=== PATIENT | female | born 1950 | race Caucasian/White ===

== ENCOUNTER → 2019-06-29 | Outpatient (CLI) | payer MEDICARE | END | disposition home or self-care (01) | LOC: RAD 15:45 | PROVIDERS: ATTEND Family Medicine | DX: N39.0 Urinary tract infection, site not specified (principal); R31.9 Hematuria, unspecified | CPT/HCPCS: 76770 ==

== ENCOUNTER 2019-11-23 09:57 | Outpatient (CLI) | payer MEDICARE ==
[2019-11-23] MEDS ORDERED: BIOT25005 PO (10:33)
[2019-11-23] MEDS ORDERED: FLUO20CA19 PO (10:33)
[2019-11-23] MEDS ORDERED: [UNRECOGNIZED DRUG - OTHER] PO (10:33)
[2019-11-23] MEDS ORDERED: MV-M1TAB29 PO (10:33)
[2019-11-23] MEDS ORDERED: UBID100C24 PO (10:33)
[2019-11-23] MEDS ORDERED: MULT-658 PO (10:33)
[2019-11-23] MEDS ORDERED: ATOR20TA37 PO (10:33)
[2019-11-23] MEDS ORDERED: MULT-672 PO (10:33)
[2019-11-23] MEDS ORDERED: OMEG-76 PO (10:33)
[2019-11-23] MEDS ORDERED: ASCO250T2 PO (10:33)
[2019-11-23] MEDS ORDERED: CALC-35 PO (10:33)
[2019-11-23] MEDS ORDERED: ENAL20TA PO (10:33)
[2019-11-23 11:17] LABS: BASOPHILS # (AUTO) 0.04 x10^3/uL (0-0.1); BASOPHILS % (AUTO) 1 % (0-1); EOSINOPHILS # (AUTO) 0.04 x10^3/uL (0-0.4); EOSINOPHILS % (AUTO) 1 % (1-7); LYMPHOCYTES # (AUTO) 2.19 x10^3/uL (1-3.4); LYMPHOCYTES % (AUTO) 29 % (22-44); MD NO; MEAN CORPUSCULAR HGB CONC 33.2 g/dL (32.4-35.8); MEAN CORPUSCULAR VOLUME 93.3 fL (80-100); MEAN PLATELET VOLUME 8.2 fL (7.4-10.4); MONOCYTES # (AUTO) 0.48 x10^3/uL (0.2-0.8); MONOCYTES % (AUTO) 6 % (2-9); NEUTROPHILS % (AUTO) 64 % (42-75); PLATELET COUNT 300 x10^3/uL (130-400); RED CELL DISTRIBUTION WIDTH 13.4 % (9.6-15.2)
[2019-11-23 11:20] LABS: MICROSCOPIC AUTO
[2019-11-23 11:24] LABS: INTERNATIONAL NORMALIZED RATIO 0.93 (0.93-1.1); PROTHROMBIN TIME 9.9 Seconds (9.6-11.5)
[2019-11-23 11:28] LABS: ALANINE AMINOTRANSFERASE 42 U/L (12-78); ALBUMIN 4.3 g/dL (3.4-5.0); ANION GAP 7 mmol/L (5-15); CALCIUM 9.9 mg/dL (8.5-10.1); CHLORIDE 112 mmol/L (98-107); CREATININE 0.94 mg/dL (0.55-1.02)
[2019-11-23 11:29] LABS: ALKALINE PHOSPHATASE 87 U/L (45-117); BILIRUBIN,TOTAL 0.4 mg/dL (0.2-1.0); TOTAL PROTEIN 8.3 g/dL (6.4-8.2)
== END 2019-11-23 23:59 | disposition home or self-care (01) ==
LOC: STAR 09:57
PROVIDERS: ATTEND Urology
DX: Z01.818 Encounter for other preprocedural examination (principal); Z11.59 Encounter for screening for other viral diseases; N20.0 Calculus of kidney
CPT/HCPCS: 36415; 80053; 81001; 85025; 85610; 87086; 93005; U0001

== ENCOUNTER 2019-11-27 08:25 | Day surgery (SDC) | payer MEDICARE ==
[~2019-11-27] VITALS: Ht 160 cm; Wt 90.7 kg
[~2019-11-27 08:25] MED LIST: ASCO250T2 PO; ATOR20TA37 PO; BIOT25005 PO; CALC-35 PO; ENAL20TA PO; FLUO20CA19 PO; MULT-658 PO; MULT-672 PO; MV-M1TAB29 PO; OMEG-76 PO; UBID100C24 PO; [UNRECOGNIZED DRUG - OTHER] PO
[2019-11-27] MEDS ORDERED: LACTATED RINGERS 1,000 ML IV SCH (09:05)
[2019-11-27 09:07] VITALS: BP 148/83
[2019-11-27] MEDS ORDERED: CHLORHEXIDINE 15 ML UDC MM ONE (09:30)
[2019-11-27] MEDS ORDERED: FENTANYL PF 250 MCG/5ML ONE (09:59)
[2019-11-27] MEDS ORDERED: OXYcodone 5 MG/5 ML ORAL.SOL UDC PO PRN (10:00)
[2019-11-27] MEDS ORDERED: PROMETHAZINE 25 MG/ML, 1ML IVPush PRN (10:00)
[2019-11-27] MEDS ORDERED: LABETALOL 5MG/ML, 20ML IV PRN (10:00)
[2019-11-27] MEDS ORDERED: HYDROmorphone 1 MG/ML, 1ML INJ IVPush PRN (10:00)
[2019-11-27] MEDS ORDERED: hydrALAzine 20 MG/ML, 1ML IV PRN (10:00)
[2019-11-27] MEDS ORDERED: MEPERIDINE/PF 25MG/0.5ML IVPush PRN (10:00)
[2019-11-27] MEDS ORDERED: HALOPERIDOL 5 MG/ML IV PRN (10:00)
[2019-11-27] MEDS ORDERED: GLYCOPYRROLATE 0.2MG/1ML, 5ML ONE (11:22)
[2019-11-27] MEDS ORDERED: NEOSTIGMINE 1 MG/ML, 10ML ONE (11:22)
[2019-11-27] MEDS ORDERED: ONDANSETRON 2MG/ML, 2ML ONE (11:22)
[2019-11-27] MEDS ORDERED: ROCURONIUM 10MG/ML,5ML ONE (11:22)
[2019-11-27] MEDS ORDERED: CEFAZOLIN 1,000 MG ONE (11:22)
[2019-11-27] MEDS ORDERED: PROPOFOL 10 MG/ML, 20ML ONE (11:22)
[2019-11-27] MEDS ORDERED: SUCCINYLCHOLINE 20 MG/ML, 10ML ONE (11:22)
[2019-11-27] MEDS ORDERED: DEXAMETHASONE 4 MG/ML, 1ML ONE (11:22)
[2019-11-27] MEDS ORDERED: PROMETHAZINE 25 MG/ML, 1ML ONE (12:00)
[2019-11-27] MEDS ORDERED: FENTANYL PF 100 MCG/2ML ONE (12:35)
[2019-11-27] MEDS ORDERED: OXYcodone 5 MG/5 ML ORAL.SOL UDC ONE (12:35)
[2019-11-27] MEDS: FENTANYL PF 100 MCG/2ML IV PRN ×2 (12:37→12:43)
[2019-11-27] MEDS ORDERED: morphine SULFATE 10 MG/ML, 1ML ONE (13:47)
[2019-11-27] MEDS ORDERED: morphine SULFATE 10 MG/ML, 1ML IV PRN (14:00)
[2019-11-27] MEDS ORDERED: OPIUM/BELLADONNA SUPP.RECT 16.2-30 MG ONE (15:45)
[2019-11-27] MEDS ORDERED: OPIUM/BELLADONNA SUPP.RECT 16.2-30 MG PR PRN (16:00)
[2019-11-27] MEDS ORDERED: DIPHENHYDRAMINE 25 MG CAPSULE PO ONE (16:00)
[2019-11-27] MEDS ORDERED: KETOROLAC 30 MG/1 ML IVPush PRN (16:00)
== END 2019-11-27 18:25 | disposition home or self-care (01) ==
LOC: OUT 08:25
PROVIDERS: ATTEND Urology
DX: N20.0 Calculus of kidney (principal); I10 Essential (primary) hypertension; E78.5 Hyperlipidemia, unspecified; G47.33 Obstructive sleep apnea (adult) (pediatric); J44.9 Chronic obstructive pulmonary disease, unspecified; Z79.899 Other long term (current) drug therapy; Z87.891 Personal history of nicotine dependence; Z91.040 Latex allergy status; Z90.710 Acquired absence of both cervix and uterus; Z98.84 Bariatric surgery status
CPT/HCPCS: 52356; 74018; 82360; 88300; C1769; C2617; J0330; J0690; J1100; J1885; J2270; J2405; J2550; J2704; J3010; J7120; Q0163; 76000; J2710

== ENCOUNTER → 2019-12-12 | Outpatient (CLI) | payer MEDICARE | END | disposition home or self-care (01) | LOC: RAD 13:23 | PROVIDERS: ATTEND Urology | DX: N20.0 Calculus of kidney (principal); I87.8 Other specified disorders of veins | CPT/HCPCS: 74018 ==